=== PATIENT | male | born 1980 | race Caucasian/White ===

== ENCOUNTER 2017-05-31 17:30 | Emergency (ER) | payer MEDICARE ==
[~2017-05-31] VITALS: Ht 182.8 cm; Wt 120.2 kg
[~2017-05-31 17:30] MED LIST: ANAPROX DS550 MG PO; CLEOCIN HCL150 MG PO; DILANTIN KAPSE100 MG PO; FLEXERIL5 MG PO; KEFLEX500 MG PO; NAPROSYN500 MG PO; NORCO 325 MG-51 TAB PO; TRAMADOL HCL50 MG PO; TRIMOX500 MG PO; VICODIN 5/500 505 MG PO; VICODIN 500 MG-1 TAB PO; VOLTAREN50 M1 PO
[2017-05-31] MEDS ORDERED: CEFADROXIL500 M1 PO (18:15)
[2017-05-31] MEDS ORDERED: ANAPROX DS550 MG PO (18:15)
== END 2017-05-31 19:50 | disposition home or self-care (01) ==
LOC: ED 17:30
DX: S61.032A Puncture wound without foreign body of left thumb without damage to nail, initial encounter (principal); W22.8XXA Striking against or struck by other objects, initial encounter; Y93.89 Activity, other specified; Y92.89 Other specified places as the place of occurrence of the external cause; Y99.8 Other external cause status; Z88.1 Allergy status to other antibiotic agents

== ENCOUNTER 2018-05-16 16:53 | Emergency (ER) | payer MEDICARE ==
[~2018-05-16] VITALS: Ht 187.9 cm; Wt 122.5 kg
[~2018-05-16 16:53] MED LIST changes: +CEFADROXIL500 M1 PO
[2018-05-16] MEDS ORDERED: PREDNISONE50 MG PO (17:07)
[2018-05-16] MEDS ORDERED: NAPROSYN500 MG PO (17:07)
[2018-05-16] MEDS ORDERED: CYCLOBENZAPRINE10 MG PO (17:07)
[2018-05-16] MEDS ORDERED: IBU800 MG PO (17:07)
== END 2018-05-16 18:47 | disposition home or self-care (01) ==
LOC: ED 16:53
DX: M54.5 Low back pain (principal); F17.200 Nicotine dependence, unspecified, uncomplicated; Z88.1 Allergy status to other antibiotic agents; Z79.2 Long term (current) use of antibiotics; Z79.899 Other long term (current) drug therapy; X58.XXXA Exposure to other specified factors, initial encounter; Y93.89 Activity, other specified; Y92.89 Other specified places as the place of occurrence of the external cause; Y99.8 Other external cause status

== ENCOUNTER 2018-05-29 17:16 | Emergency (ER) | payer MEDICARE ==
[~2018-05-29] VITALS: Ht 193 cm; Wt 99.8 kg
[~2018-05-29 17:16] MED LIST changes: +CYCLOBENZAPRINE10 MG PO; +IBU800 MG PO; +PREDNISONE50 MG PO
== END 2018-05-29 18:24 | disposition home or self-care (01) ==
LOC: ED 17:16
DX: M54.16 Radiculopathy, lumbar region (principal); M25.552 Pain in left hip; Z88.1 Allergy status to other antibiotic agents

== ENCOUNTER 2021-07-17 16:41 | Emergency (ER) | payer OTHER ==
[~2021-07-17] VITALS: Ht 187.9 cm; Wt 99.8 kg
[2021-07-17] MEDS ORDERED: CIPROFLOXACIN500 M4 PO (17:18)
[2021-07-17 18:11] LABS: BILIRUBIN Negative (Negative); BLOOD 2+ (Negative); CLARITY Clear (Clear); COLOR Yellow (Yellow); GLUCOSE Negative (Negative); KETONE Negative (Negative); LEUKO ESTERASE Negative (Negative); NITRITE Negative (Negative); SPECIFIC GRAVITY 1.025 (1.001-1.030)
[2021-07-17 18:32] LABS: BACTERIA TRACE; RBC 21-30 rbc/hpf (0-2); WBC 0-2 wbc/hpf (0-5)
== END 2021-07-17 19:25 | disposition home or self-care (01) ==
LOC: ED 16:41
PROVIDERS: Physician Assistant
DX: R30.0 Dysuria (principal); Z88.1 Allergy status to other antibiotic agents

== ENCOUNTER 2021-07-19 14:28 | Emergency (ER) | payer OTHER ==
[~2021-07-19] VITALS: Ht 187.9 cm; Wt 99.8 kg
[~2021-07-19 14:28] MED LIST changes: +CIPROFLOXACIN500 M4 PO
[2021-07-19 15:03] LABS: BASO # 0.1 10*3/uL (0.0-0.1); BASO % 1.3 % (0.0-1.0); EOS # 0.2 10*3/uL (0.0-0.4); EOS % 2.8 % (1.0-4.0); HEMATOCRIT 42.8 % (42.0-52.0); LYMPH # 2.7 10*3/uL (1.3-4.4); MEAN CELL VOLUME 83.4 fl (80.0-94.0); MEAN CORPUSCULAR HGB 28.8 pg (27.0-31.0); MEAN CORPUSCULAR HGB CONC 34.6 g/dl (33.0-37.0); MEAN PLATELET VOLUME 10.6 fl (9.6-12.3); MONO # 0.8 10*3/uL (0.1-1.0); MONO % 9.9 % (3.0-9.0); NEUT % 50.7 % (47.0-73.0); PLATELET COUNT AUTOMATED 322 10*3/uL (130-400); RED BLOOD COUNT 5.13 10*6/uL (4.50-5.90); WHITE BLOOD COUNT 7.8 10*3/uL (4.8-10.8)
[2021-07-19 15:19] LABS: ALKALINE PHOSPHATASE 92 U/L (45-117); BUN 13 mg/dl (7-24); CHLORIDE 106 mmol/L (98-107); LIPASE 108 U/L (73-393); POTASSIUM 3.3 mmol/L (3.5-5.1); SGOT/AST 18 IU/L (3-35); SGPT/ALT 27 U/L (12-78); SODIUM 138 mmol/L (136-145); TOTAL PROTEIN 7.4 gm/dL (6.4-8.2)
[2021-07-19 15:37] LABS: ACETAMINOPHEN (TYLENOL) < 5.0 ug/ml (10-30); ETHYL ALCOHOL < 3.0 mg/dl (<3)
[2021-07-19 16:54] LABS: BILIRUBIN Negative (Negative); BLOOD 3+ (Negative); CLARITY Cloudy (Clear); COLOR Yellow (Yellow); GLUCOSE Negative (Negative); KETONE 1+ (Negative); LEUKO ESTERASE Negative (Negative); NITRITE Negative (Negative); UROBILINOGEN 0.2 E.U./dl (0.0-1.0)
[2021-07-19 17:04] LABS: URINE AMPHETAMINES > 1000 (1000ng/ml); URINE BARBITURATES < 200 (200ng/ml); URINE BENZODIAZEPINES < 200 (200ng/ml); URINE CANNABINOIDS (THC) < 50 (50ng/ml); URINE COCAINE > 300 (300ng/ml); URINE METHADONE < 300 (300ng/ml); URINE OPIATES > 300 (300ng/ml)
[2021-07-19 17:11] LABS: URINE PHENCYCLIDINE < 25 (25ng/ml)
[2021-07-19 17:33] LABS: BACTERIA 1+; PH >= 9.0 (4.5-8.0); RBC TNTC rbc/hpf (0-2)
== END 2021-07-19 17:58 | disposition home or self-care (01) ==
LOC: ED 14:28
PROVIDERS: Emergency Medicine
DX: F15.10 Other stimulant abuse, uncomplicated (principal); R30.0 Dysuria; Z88.1 Allergy status to other antibiotic agents

== ENCOUNTER → 2021-08-11 | Outpatient (CLI) | payer OTHER ==
[~2021-08-11] MED LIST changes: +DIVALPROEX SOD500 M1 PO
== END | disposition home or self-care (01) ==
LOC: RAD 10:48
PROVIDERS: ATTEND Family Medicine
DX: F17.200 Nicotine dependence, unspecified, uncomplicated (principal); R63.4 Abnormal weight loss

== ENCOUNTER 2023-01-07 10:05 | Emergency (ER) | payer OTHER ==
[~2023-01-07] VITALS: Wt 77.1 kg
== END 2023-01-07 13:50 | disposition home or self-care (01) ==
LOC: ED 10:05
DX: M25.461 Effusion, right knee (principal); M25.561 Pain in right knee; Z88.1 Allergy status to other antibiotic agents; Z98.890 Other specified postprocedural states; Z87.891 Personal history of nicotine dependence

== ENCOUNTER → 2023-01-19 | Outpatient (CLI) | payer OTHER | END | disposition home or self-care (01) | LOC: MRI 00:07 | PROVIDERS: ATTEND Orthopaedic Surgery | DX: S83.411A Sprain of medial collateral ligament of right knee, initial encounter (principal); S83.91XA Sprain of unspecified site of right knee, initial encounter; M17.0 Bilateral primary osteoarthritis of knee; M23.91 Unspecified internal derangement of right knee; M25.461 Effusion, right knee; M25.561 Pain in right knee; X58.XXXA Exposure to other specified factors, initial encounter; Y93.89 Activity, other specified; Y92.89 Other specified places as the place of occurrence of the external cause; Y99.8 Other external cause status ==